=== PATIENT | female | born 1955 | race Asian ===

== ENCOUNTER 2017-11-18 10:23 | Inpatient (IN) | payer MEDICAID ==
[~2017-11-18] VITALS: Ht 160 cm; Wt 80.0 kg
[2017-11-18] MEDS ORDERED: ALBU8.5H8 IH (10:44)
[2017-11-18] MEDS ORDERED: ALBU8HFA IH (10:44)
[2017-11-18] MEDS ORDERED: AUD NEB (10:44)
[2017-11-18] MEDS ORDERED: ALBUTEROL SULFATE 5 MG/ML 20 ML NEB SOLN [BULK] NEB ONE ×3 (11:15→14:15)
[2017-11-18] MEDS ORDERED: IPRATROPIUM BROMIDE 0.5 MG/2.5 ML NEB SOLUTION NEB ONE ×3 (11:15→14:15)
[2017-11-18] MEDS ORDERED: MethylPREDNISolone SOD SUCC 125 MG/2 ML VIAL IVP ONE (12:15)
[2017-11-18 15:06] LABS: BASOPHILS % (AUTO) 0.3 % (0.0-2.0); EOSINOPHILS % (AUTO) 0.5 % (1.0-6.0); HEMATOCRIT 40.1 % (36-46); HEMOGLOBIN 13.5 g/dL (12.0-16.0); LYMPHOCYTES # (AUTO) 0.5 K/uL (1.0-4.8); LYMPHOCYTES % (AUTO) 3.5 % (22.0-44.0); MEAN CORPUSCULAR HEMOGLOBIN 31.1 pg (26.0-34.0); MEAN CORPUSCULAR HGB CONC 33.7 G/dL (31.0-37.0); MEAN CORPUSCULAR VOLUME 92 fL (80-100); MONOCYTES # (AUTO) 0.1 K/uL (0.1-1.0); MONOCYTES % (AUTO) 0.9 % (2.0-9.0); NEUTROPHILS # (AUTO) 12.7 K/uL (1.8-7.7); PLATELET COUNT (AUTO) 320 K/uL (150-450); RED BLOOD CELL COUNT(AUTO) 4.34 MIL/uL (4.00-5.20); RED CELL DISTRIBUTION WIDTH 13.1 % (11.5-14.5)
[2017-11-18 15:09] LABS: NEUTROPHILS % (AUTO) 94.8 % (40.0-70.0)
[2017-11-18 15:20] LABS: ANION GAP 9 mmol/L (8-16); CALCIUM, TOTAL 8.6 mg/dL (8.8-10.5); CARBON DIOXIDE 30 mmol/L (22-29); CHLORIDE 100 mmol/L (98-107); CREATININE 0.79 mg/dL (0.60-1.30); GLOMERULAR FILTR. RATE CALC > 60 mL/min (>60); GLUCOSE,RANDOM 191 mg/dL (70-110); POTASSIUM 3.5 mmol/L (3.5-5.1); SODIUM SERUM 139 mmol/L (136-145); UREA NITROGEN, BLOOD 12 mg/dL (7-18)
[2017-11-18 15:25] LABS: ALANINE AMINOTRANSFERASE 26 U/L (12-78); ALBUMIN 3.7 g/dL (3.4-5.0); ALKALINE PHOSPHATASE 97 U/L (46-116); ASPARTATE AMINOTRANSFERASE 17 U/L (15-37); BILIRUBIN,TOTAL 0.3 mg/dL (0.1-1.0)
[2017-11-18] MEDS ORDERED: MAGNESIUM HYDROXIDE SUSPENSION 30 ML UDCUP PO PRN (15:30)
[2017-11-18] MEDS ORDERED: ACETAMINOPHEN 325 MG TABLET PO PRN (15:30)
[2017-11-18 16:39] VITALS: BP 156/94
[2017-11-18] MEDS ORDERED: SODIUM CHLORIDE 0.9% 250 ML IV ONE (17:45)
[2017-11-18] MEDS: MethylPREDNISolone SOD SUCC 125 MG/2 ML VIAL IVP SCH ×2 (17:48→23:19)
[2017-11-18] MEDS: HEPARIN SODIUM,PORCINE 5,000 UNITS/ML VIAL SQ SCH ×2 (17:49→23:19)
[2017-11-18] MEDS: PANTOPRAZOLE SODIUM 40 MG DR TABLET PO SCH (17:49)
[2017-11-18] MEDS: AZITHROMYCIN 500 MG/NS 250 ML IV SCH (18:22)
[2017-11-18 19:38] VITALS: BP 149/79
[2017-11-18] MEDS: DOCUSATE SODIUM 100 MG CAPSULE PO SCH (19:52)
[2017-11-18] MEDS: IPRATROPIUM BROMIDE 0.5 MG/2.5 ML NEB SOLUTION NEB PRN (21:26)
[2017-11-18] MEDS: ALBUTEROL SULFATE 2.5 MG/0.5 ML NEB SOLUTION NEB PRN (21:26)
[2017-11-18 23:32] VITALS: BP 130/77
[2017-11-19] MEDS: ALBUTEROL SULFATE 2.5 MG/0.5 ML NEB SOLUTION NEB PRN ×3 (01:31→10:38)
[2017-11-19] MEDS: IPRATROPIUM BROMIDE 0.5 MG/2.5 ML NEB SOLUTION NEB PRN ×3 (01:31→10:38)
[2017-11-19] MEDS: MethylPREDNISolone SOD SUCC 125 MG/2 ML VIAL IVP SCH ×4 (06:20→23:29)
[2017-11-19 08:04] VITALS: BP 150/84
[2017-11-19] MEDS: AmLODIPine BESYLATE 5 MG TABLET PO SCH (09:23)
[2017-11-19] MEDS: PANTOPRAZOLE SODIUM 40 MG DR TABLET PO SCH (09:25)
[2017-11-19] MEDS: DOCUSATE SODIUM 100 MG CAPSULE PO SCH ×2 (09:26→20:35)
[2017-11-19] MEDS: HEPARIN SODIUM,PORCINE 5,000 UNITS/ML VIAL SQ SCH ×3 (09:26→23:37)
[2017-11-19] MEDS ORDERED: ALBUTEROL SULFATE 2.5 MG/0.5 ML NEB SOLUTION NEB PRN ×2 (10:45→13:00)
[2017-11-19] MEDS: MONTELUKAST SODIUM 10 MG TABLET PO SCH (11:10)
[2017-11-19 11:33] LABS: GLUCOMETER DEV NAME(LOC) 6N 2D; GLUCOSE,POINT OF CARE 128 MG/DL (70-110)
[2017-11-19 11:43] VITALS: BP 144/79
[2017-11-19] MEDS: ALBUTEROL SULFATE 2.5 MG/0.5 ML NEB SOLUTION NEB SCH ×4 (12:57→23:43)
[2017-11-19] MEDS ORDERED: IPRATROPIUM BROMIDE 0.5 MG/2.5 ML NEB SOLUTION NEB PRN (13:00)
[2017-11-19] MEDS ORDERED: ALBUTEROL SULFATE 2.5 MG/0.5 ML NEB SOLUTION NEB SCH (15:00)
[2017-11-19] MEDS: AZITHROMYCIN 500 MG/NS 250 ML IV SCH (15:44)
[2017-11-19 16:16] VITALS: BP 136/72
[2017-11-19] MEDS: IPRATROPIUM BROMIDE 0.5 MG/2.5 ML NEB SOLUTION NEB SCH ×3 (17:21→23:43)
[2017-11-19 19:30] VITALS: BP 127/71
[2017-11-19 19:47] LABS: GLUCOMETER DEV NAME(LOC) 6N 2D; GLUCOSE,POINT OF CARE 153 MG/DL (70-110)
[2017-11-19 23:12] VITALS: BP 131/79
[2017-11-20] MEDS: IPRATROPIUM BROMIDE 0.5 MG/2.5 ML NEB SOLUTION NEB SCH ×3 (03:01→10:36)
[2017-11-20] MEDS: ALBUTEROL SULFATE 2.5 MG/0.5 ML NEB SOLUTION NEB SCH ×3 (03:01→10:36)
[2017-11-20 04:35] VITALS: BP 142/69
[2017-11-20] MEDS: MethylPREDNISolone SOD SUCC 125 MG/2 ML VIAL IVP SCH ×2 (05:44→11:34)
[2017-11-20] MEDS: DOCUSATE SODIUM 100 MG CAPSULE PO SCH (07:55)
[2017-11-20] MEDS: AmLODIPine BESYLATE 5 MG TABLET PO SCH (07:55)
[2017-11-20] MEDS: PANTOPRAZOLE SODIUM 40 MG DR TABLET PO SCH (07:55)
[2017-11-20] MEDS: HEPARIN SODIUM,PORCINE 5,000 UNITS/ML VIAL SQ SCH (07:56)
[2017-11-20 08:08] VITALS: BP 123/80
[2017-11-20] MEDS: MONTELUKAST SODIUM 10 MG TABLET PO SCH (08:09)
[2017-11-20 11:23] LABS: GLUCOMETER DEV NAME(LOC) 6N 1E; GLUCOSE,POINT OF CARE 145 MG/DL (70-110)
[2017-11-20 11:53] VITALS: BP 153/79
[2017-11-20] MEDS ORDERED: AZITHROMYCIN PO (12:00)
[2017-11-20] MEDS ORDERED: PRED5 PO (12:00)
[2017-11-20] MEDS ORDERED: MONT10TA21 PO (12:00)
[2017-11-20] MEDS ORDERED: AMLO-511 PO (12:00)
== END 2017-11-20 12:55 | disposition home or self-care (01) | DRG 144 ==
LOC: EMS 10:25 → 6N 15:24
PROVIDERS: ADMIT Internal Medicine; ATTEND Internal Medicine
DX: J20.9 Acute bronchitis, unspecified (principal); R65.10 Systemic inflammatory response syndrome (SIRS) of non-infectious origin without acute organ dysfunction; J45.901 Unspecified asthma with (acute) exacerbation; I10 Essential (primary) hypertension; Z91.19 Patient's noncompliance with other medical treatment and regimen; Z79.899 Other long term (current) drug therapy
CPT/HCPCS: 71046; 94640; 94644; 94645; 96374; 99285; J0456; J1644; J2930; J7050

== ENCOUNTER 2018-04-30 12:02 | Emergency (ER) | payer OTHER ==
[~2018-04-30] VITALS: Ht 160 cm; Wt 86.4 kg
[~2018-04-30 12:02] MED LIST: ALBU8HFA IH; AMLO-511 PO; AUD NEB; CETI-290 PO; FLUT16H NASAL; MONT10TA21 PO; PRED10 PO
[2018-04-30] MEDS ORDERED: ALBU8.5H8 IH (12:04)
[2018-04-30 13:01] LABS: BASOPHILS % (AUTO) 1.2 % (0.0-2.0); EOSINOPHILS % (AUTO) 11.1 % (1.0-6.0); HEMATOCRIT 39.8 % (36-46); HEMOGLOBIN 13.2 g/dL (12.0-16.0); LYMPHOCYTES # (AUTO) 1.5 K/uL (1.0-4.8); LYMPHOCYTES % (AUTO) 19.3 % (22.0-44.0); MEAN CORPUSCULAR HEMOGLOBIN 31.2 pg (26.0-34.0); MEAN CORPUSCULAR HGB CONC 33.2 G/dL (31.0-37.0); MEAN CORPUSCULAR VOLUME 94 fL (80-100); MONOCYTES # (AUTO) 0.6 K/uL (0.1-1.0); MONOCYTES % (AUTO) 7.4 % (2.0-9.0); NEUTROPHILS # (AUTO) 4.7 K/uL (1.8-7.7); PLATELET COUNT (AUTO) 399 K/uL (150-450); RED BLOOD CELL COUNT(AUTO) 4.23 MIL/uL (4.00-5.20); RED CELL DISTRIBUTION WIDTH 13.4 % (11.5-14.5)
[2018-04-30 13:07] LABS: ANION GAP 5 mmol/L (8-16); CARBON DIOXIDE 30 mmol/L (22-29); CHLORIDE 104 mmol/L (98-107); GLOMERULAR FILTR. RATE CALC > 60 mL/min (>60); GLUCOSE,RANDOM 100 mg/dL (70-110); POTASSIUM 3.9 mmol/L (3.5-5.1); SODIUM SERUM 139 mmol/L (136-145); UREA NITROGEN, BLOOD 8 mg/dL (7-18)
[2018-04-30 13:13] LABS: ALANINE AMINOTRANSFERASE 21 U/L (12-78); ALBUMIN 3.4 g/dL (3.4-5.0); ALKALINE PHOSPHATASE 94 U/L (46-116); ASPARTATE AMINOTRANSFERASE 12 U/L (15-37); BILIRUBIN,TOTAL 0.2 mg/dL (0.1-1.0); LIPASE 101 U/L (73-393); TOTAL PROTEIN, SERUM 7.3 g/dL (6.4-8.2)
[2018-04-30 13:19] LABS: B-TYPE NATRIURETIC PEPTIDE 24 pg/mL (0-100)
[2018-04-30 13:54] LABS: APPEARANCE,URINE CLEAR (CLEAR); BILIRUBIN,URINE NEGATIVE (NEGATIVE); GLUCOSE, URINE (UA) NEGATIVE (NEGATIVE); KETONES,URINE NEGATIVE (NEGATIVE); LEUKOCYTE ESTERASE ,URINE NEGATIVE (NEGATIVE); NITRATE,URINE NEGATIVE (NEGATIVE); OCCULT BLOOD,URINE NEGATIVE (NEGATIVE); PH,URINE 7.5 (5.0-8.0); PROTEIN,URINE NEGATIVE (NEGATIVE); UROBILINOGEN,URINE 0.2 mg/dL (<=1.0)
[2018-04-30 14:23] LABS: BACTERIA,URINE None Seen /HPF (None Seen); RBC,URINE None Seen /HPF (0-2); WBC,URINE None Seen /HPF (0-5)
[2018-04-30] MEDS ORDERED: 0.9% SODIUM CHLORIDE 5 ML NEB SOLUTION NEB ONE (14:38)
[2018-04-30] MEDS: IPRATROPIUM BROMIDE 0.5 MG/2.5 ML NEB SOLUTION NEB ONE (14:43)
[2018-04-30] MEDS: ALBUTEROL SULFATE 2.5 MG/0.5 ML NEB SOLUTION NEB ONE (14:43)
[2018-04-30] MEDS: PredniSONE 20 MG TABLET PO ONE (14:51)
[2018-04-30 17:27] VITALS: BP 129/72
== END 2018-04-30 17:30 | disposition home or self-care (01) ==
LOC: EMS 12:02
DX: J45.901 Unspecified asthma with (acute) exacerbation (principal)
CPT/HCPCS: 36415; 71045; 80053; 81001; 83690; 83880; 84484; 85025; 93005; 99285; J7512

== ENCOUNTER 2018-07-10 07:57 | Emergency (ER) | payer OTHER ==
[~2018-07-10] VITALS: Ht 160 cm; Wt 80.9 kg
[~2018-07-10 07:57] MED LIST changes: +ALBU8.5H8 IH; +CETI-170 PO; -CETI-290 PO; -PRED10 PO
[2018-07-10] MEDS ORDERED: OMEP20 PO (08:01)
[2018-07-10] MEDS ORDERED: PredniSONE 20 MG TABLET PO ONE (08:15)
[2018-07-10] MEDS ORDERED: ALBUTEROL SULFATE 5 MG/ML 20 ML NEB SOLN [BULK] NEB ONE (08:15)
[2018-07-10] MEDS ORDERED: IPRATROPIUM BROMIDE 0.5 MG/2.5 ML NEB SOLUTION NEB ONE (08:15)
[2018-07-10] MEDS ORDERED: 0.9% SODIUM CHLORIDE 15 ML NEB SOLUTION NEB ONE (08:52)
[2018-07-10] MEDS ORDERED: ALBUTEROL SULFATE HFA 90 MCG/PUFF 8 GM INHALER IH ONE (10:15)
[2018-07-10 10:30] VITALS: BP 144/70
== END 2018-07-10 11:27 | disposition home or self-care (01) ==
LOC: EMS 07:57
DX: J45.909 Unspecified asthma, uncomplicated (principal)
CPT/HCPCS: 71045; 94644; 99285; J7512; J3535

== ENCOUNTER 2020-12-05 06:34 | Day surgery (SDC) | payer OTHER ==
[2020-12-04 09:43] LABS: COVID AG,FIA SOURCE NASOPHARYNGEAL
[~2020-12-05] VITALS: Ht 160 cm; Wt 86.4 kg
[~2020-12-05 06:34] MED LIST changes: +AMLO-257 PO; -AMLO-511 PO; -AUD NEB; -CETI-170 PO; +CETI-450 PO; +LIDOCAINE/PF 2% 5 ML VIAL IM ONE; +MONT-35 PO; -MONT10TA21 PO; +OMEP20 PO
[2020-12-05] MEDS ORDERED: RINGERS SOLUTION,LACTATED 1,000 ML IV ONE ×2 (07:00→07:09)
[2020-12-05] MEDS ORDERED: FAMO20 PO (07:07)
[2020-12-05] MEDS ORDERED: ASCO500 PO (07:07)
[2020-12-05] MEDS ORDERED: ATOR10TA84 PO (07:07)
[2020-12-05] MEDS ORDERED: CeFAZolin 2 GM/DEXTROSE 50 ML IV ONE ×2 (07:09→08:00)
[2020-12-05] MEDS ORDERED: BUPIVACAINE HCL/PF 0.25% 30 ML VIAL ONE (07:12)
[2020-12-05] MEDS ORDERED: MEPERIDINE-PF 25 MG/ML VIAL IVP PRN (09:00)
[2020-12-05] MEDS ORDERED: FentaNYL CITRATE PF 100 MCG/2 ML VIAL IVP PRN (09:00)
[2020-12-05] MEDS ORDERED: HYDROmorphone 2 MG/ML VIAL IVP PRN (09:00)
[2020-12-05] MEDS ORDERED: BACITRACIN 50,000 UNITS/VIAL ONE (09:49)
[2020-12-05] MEDS ORDERED: SODIUM CHLORIDE 0.9% 20 ML ONE (09:49)
[2020-12-05] MEDS ORDERED: HYDR-4723 PO (10:19)
[2020-12-05] MEDS ORDERED: HYDROmorphone 2 MG/ML VIAL ONE (11:13)
[2020-12-05] MEDS ORDERED: FentaNYL CITRATE PF 100 MCG/2 ML VIAL IVP ONE (12:00)
[2020-12-05] MEDS ORDERED: MIDAZOLAM HCL 2 MG/2 ML VIAL IVP ONE (12:00)
[2020-12-05] MEDS ORDERED: OXYGEN THERAPY IH SCH (20:00)
== END 2020-12-05 12:15 | disposition home or self-care (01) ==
LOC: SURGERY 06:34
PROVIDERS: ATTEND Surgery
DX: K43.6 Other and unspecified ventral hernia with obstruction, without gangrene (principal); J45.909 Unspecified asthma, uncomplicated; G47.33 Obstructive sleep apnea (adult) (pediatric); I10 Essential (primary) hypertension; Z79.899 Other long term (current) drug therapy; Z98.890 Other specified postprocedural states; Z91.012 Allergy to eggs; Z91.09 Other allergy status, other than to drugs and biological substances
CPT/HCPCS: 49561; 49568; 87426; 88302; 93005; C1781; C9803; J0690 ×2; J1170; J2250; J3010; J3490 ×3; J7120